=== PATIENT | female | born 1930 | race Caucasian/White ===

== ENCOUNTER 2017-10-23 17:32 | Inpatient (IN) | payer OTHER ==
[~2017-10-23] VITALS: Ht 160 cm; Wt 51.0 kg
--- NOTE | ~2017-10-23 | HC ---
[facility] [place] [address] CONSULTATION Name: BRISEIDA BOSS Room #: 360-P [facility] IN M.R.#: [id number] Admission: 10/23/17 Attend Phys: Janes Luther MD Discharge: 10/29/17 Date of : 30 Report #: [id number] THIS REPORT FOR: //name// CC: Janes Verdugo DATE OF SERVICE: 10/24/2017 REFERRING PROVIDER: Morgan Rivas MD REASON FOR CONSULTATION: Pneumonia. CHIEF COMPLAINT: Cough, shortness of breath. HISTORY OF PRESENT ILLNESS: Our group was asked to evaluate the patient in consultation while hospitalized at [facility], a pleasant 87-year-old woman, very hard of hearing. History taken from discussion with daughter at bedside. The patient has been having 5 days of increasing shortness of breath and generalized weakness, noted to have pneumonia and influenza in August, treated with Levaquin, started having increasing symptoms again of cough and weakness as described as well as Levaquin and presented to the Emergency Department due to increasing shortness of breath prompting admission. CT scan of the chest revealed some patchy ground glass infiltrates as well as a diffuse infiltrative changes of the lungs, suggestion of bronchiectasis and some basilar fibrosis. The patient denies any dysphagia or odynophagia. ALLERGIES: None known. PAST MEDICAL HISTORY: 1. Prior pneumonia. 2. Gastroesophageal reflux disease. 3. General debilitation with inability to ambulate. Currently, uses a wheelchair. 4. Incontinence. 5. Prior GI bleed. FAMILY HISTORY: Noncontributory due to advanced age. SOCIAL HISTORY: The patient is an ex-smoker, quitting about 60 years ago. No alcohol consumption. Currently lives in [facility]. REVIEW OF SYSTEMS: CONSTITUTIONAL: No fevers, chills, sweats. ENT: No upper respiratory congestion or rhinorrhea. CARDIOVASCULAR: No chest pains or palpitations. [facility] [address] [place] [address] CONSULTATION Name: BRISEIDA BOSS Room #: 360-[facility]#: [id number] Admission: 10/23/17 Attend Phys: Janes Luther MD Discharge: 10/29/17 Date of : 30 Report #: [id number] GASTROINTESTINAL: No abdominal pain, nausea, vomiting or dysphagia. GENITOURINARY: No dysuria, no frequency but does have incontinence. INTEGUMENT: Denies any rash. MUSCULOSKELETAL: No new joint pains or swellings. NEUROLOGIC: Chronic lower extremity weakness. PHYSICAL EXAMINATION: VITAL SIGNS: Afebrile, pulse 80s, respiratory 18, blood pressure 120/64, oxygen saturation 93%. GENERAL: This is a pleasant elderly woman in no distress, hard of hearing. ENT: Clear oropharynx, some dental caries noted. NECK: Supple, no lymphadenopathy. LUNGS: Coarse breath sounds throughout with inspiratory crackles and expiratory rhonchi. CARDIOVASCULAR: Heart was regular. No murmurs. ABDOMEN: Soft, nontender, no masses. EXTREMITIES: Without edema. LABORATORY DATA: White blood cell count is 23,000, hemoglobin 6, hematocrit 20, platelet count 270. Sodium 145, potassium 3.8, chloride 115, bicarbonate 16, BUN 34, creatinine 1.4, glucose of 80, albumin 1.8. Arterial blood gas last night revealed pH 7.43, pCO2 of 23, pO2 of 73, bicarbonate of 16 on room air. IMPRESSION: 1. Recurrent pneumonia, possible aspiration with immunocompromised patient would be contributing etiology. Aspiration could be related to dysphagia or ongoing reflux with her findings on CT of esophageal with fluid and hiatal hernia, suggesting significant reflux. 2. Anemia with some concern for gastrointestinal blood loss given prior history. 3. Acute hypoxemic respiratory failure. 4. Possible chronic pulmonary fibrosis likely related to chronic reflux with aspiration. 5. Leukocytosis. SUGGESTION: 1. Antibiotics per Infectious Disease Service. 2. Steroids with taper. 3. Bronchodilators. 4. GI evaluation. 5. Follow up chest x-ray. 6. Given metabolic acidosis, follow up arterial blood gas. <ELECTRONICALLY SIGNED> By: George Richardson MD 11/03/17 1233 1434 17 George Richardson MD /nt
--- NOTE | ~2017-10-23 | H ---
[facility] [place] [address] HISTORY AND PHYSICAL Name: BRISEIDA BOSS Room #: 360-P ADM IN M.R.#: [id number] Admission: 10/23/17 Attend Phys: Janes Luther MD Discharge: Date of : 30 Report #: [id number] THIS REPORT FOR: //name// CC: Janes Rivas Shay Kartik DATE OF SERVICE: 10/23/2017 CHIEF COMPLAINT: Acute pneumonia, not responding to outpatient therapy, has had 2 episodes of pneumonia so far this year. HISTORY OF PRESENT ILLNESS: Information is obtained from the patient's record, the patient, and her daughter. She was found to have leukocytosis and pneumonia on a chest x-ray earlier this week in her [facility], and she was started on Levaquin. She did not feel any better, was weak and confused and her laboratory was repeated on the morning of admission showing a markedly elevated white blood cell count. For this reason she was sent to the Emergency Room where a chest x-ray showed chronic lung changes with possible right lung base acute infiltrate. Her white blood cell count was markedly elevated at 24,500 with a left shift, and admission for further evaluation and therapy was indicated. Her daughter indicates that the patient developed cough for about little more than a year ago, but does not have diagnosis of significant lung disease. The accompanying records indicate that she has had some wheezing at times. She had influenza 09-07-2017. She did have an acute pneumonia by chest x-ray in [place] of this year, and was treated with doxycycline and then switched to levofloxacin. When she had pneumonia show up on her chest x-ray 3 days ago, she was started on levofloxacin 500 mg daily. She stopped smoking cigarettes when she started having children, perhaps 1954. However, her remained a heavy smoker, so she experienced a secondhand smoke exposure. Apparently, she has had no pulmonary problems until her cough in this last year, Other past medical history is significant for anemia with possible GI bleeding. Her daughter reports that routine colonoscopy (not known if an EGD accompanied it) 3-4 years ago that "did not show anything." However, over the last year, her hemoglobin has been low about 9 and it was felt that she was sufficiently frail that it was decided not to pursue endoscopic procedures. She has been transfused. She was diagnosed with nonspecific GI hemorrhage. She became incontinent of stool a while ago, and the daughter is not aware of the presence of blood in the stools. Other past medical history is significant for having a permanent pacemaker. She has esophageal reflux, constipation, heart failure with edema, [address] [address] HISTORY AND PHYSICAL Name: BOSSBRISEIDA M Room #: 360-P [facility] IN ..#: [id number] Admission: 10/23/17 Attend Phys: Janes Luther MD Discharge: Date of : 30 Report #: [id number] osteoporosis, diffuse osteoarthritis, hypertension, hyperlipidemia, glaucoma, hypothyroidism, vitamin D deficiency. CURRENT MEDICATIONS: Levofloxacin 500 mg 1 daily was started 3 days ago, acetaminophen, alendronate 70 mg daily, ipratropium/albuterol 4 times daily, iron 325 mg twice daily, potassium 40 mEq 3 times daily, lactobacillus, furosemide 20 mg in the morning, latanoprost in both eyes at bedtime, levothyroxine 100 mcg daily, lisinopril 10 mg daily, milk of magnesia as needed, supplement drinks, PreserVision ARED eye capsules twice daily, ranitidine 150 mg at bedtime, simvastatin 20 mg at bedtime and vitamin D3 1000 units daily. ALLERGIES: None known. SOCIAL HISTORY: She is a [facility] of a [facility]. Daughter indicates approximately a year ago she became weak enough that she was no longer ambulatory. She does not drink nor smoke. Her code status is DNR. REVIEW OF SYSTEMS: Her daughter reports she saw her several days ago. She was confused, weak and lethargic. This morning after admission, she appears more alert, stronger and less confused. She is incontinent of bowel and urine. She is complaining of diffuse pain of the neck, thorax and lumbar spine area. She has no other complaints. OBJECTIVE: GENERAL: Examination shows an 87-year-old woman who appears alert and oriented. HEENT: Unremarkable, except the oropharynx is quite dry. NECK: Jugular venous pulsations are minimally elevated. CARDIOVASCULAR: S1 and S2 are normal and regular. CHEST: A implanted pacemaker is seen in the left upper anterior chest. Rales are easily heard through the middle and lower lung zavala. They improve, but do not disappear with a deep breath. ABDOMEN: Soft and nontender without hepatosplenomegaly or masses. GENITOURINARY: Deferred. RECTAL: Deferred. EXTREMITIES: There is no edema in the extremities at this time, and her daughter reports that ordinarily she does have some swelling in her legs. LABORATORY DATA: Her white blood cell count on admission was 24,500, and repeated this morning is essentially the same at 23,400. There is left shift with 85% segs. Her hemoglobin last night was 8.8, with IV fluids has dropped to 6.2 this morning. Her MCV is 85. Platelets are 320,000. Arterial blood gas on room air in the Emergency Room showed a pH 7.431, pCO2 was low at 23 with a pO2 of 72.8 on room air. Base excess is -7.9. Lactate is [facility] [address] [place] [address] HISTORY AND PHYSICAL Name: BRISEIDA BOSS Room #: 360-P ADM IN M.R.#: [id number] Admission: 10/23/17 Attend Phys: Janes Luther MD Discharge: Date of : 30 Report #: [id number] normal at 1.51. These were on room air. Chest x-ray showed extensive diffuse interstitial infiltrates, mostly peripheral in the right lung base with some right upper lung infiltrate and bilateral apical pleural thickening. Chronicity was uncertain. In the Emergency Room, her blood pressure was 86/56 with a pulse of 94 and she was tachypneic at 26. Her hypotension persisted at least for an hour and a half, qualifying for septic shock. ASSESSMENT: 1. Septic shock, resolved this morning. 2. Toxic encephalopathy with confusion on admission and improving with treatment overnight. 3. Marked leukocytosis that persists. 4. Chest x-ray is inconclusive -- suggests either chronic interstitial changes and/or some acute basilar and right upper lobe infiltrates. 5. Metabolic acidosis. 6. Marked anemia -- by history suspected to be from gastrointestinal blood loss source. With rehydration overnight, her hemoglobin dropped from 8.8-6.2 without blood loss in the stools being noted by the nurses. 7. History of several episodes of pneumonia and influenza over the last several months in the [facility] setting. 9. History of "congestive heart failure" with edema in the legs and stable on furosemide. 10. Hyperlipidemia. 11. Gastroesophageal reflux disease. 12. Atrioventricular block treated with pacemaker. 13. Other medical problems as listed above. PLAN: The patient has been admitted and placed on levofloxacin and piperacillin for healthcare-associated pneumonia. Infectious Disease consultation with Dr. Grajeda has been requested for assistance in choosing the appropriate antibiotic, in as much as levofloxacin has been used several times in the last month. The interstitial changes on chest x-ray along with apical pleural thickening suggests some chronic pulmonary disease. Pulmonary medicine consultation with Dr. Richardson has been requested, and nebulized bronchodilators will be continued. A CT of the chest is planned. With her hemoglobin dropping to 6.2, one unit of blood will be transfused. Laboratory to look for B12 deficiencies, as well as iron deficiency is being drawn [place] [address] HISTORY AND PHYSICAL Name: KARYNBRISEIDA M Room #: 360-P [facility] IN [facility]#: [id number] Admission: 10/23/17 Attend Phys: Janes Luther MD Discharge: Date of : 30 Report #: [id number] Tylenol is being given for her back pain. <ELECTRONICALLY SIGNED> By: Morgan Rivas MD 10/26/17 1702 1124 1307 Morgan Rivas MD /nt
--- NOTE | ~2017-10-23 | EKG ---
[place] [address] [facility] [place] [address] ELECTROCARDIOGRAM REPORT Name: BOSSBRISEIDA M Room #: 360-P ADM IN M.R.#: [id number] Admission: 10/23/17 Attend Phys: Morgan Rivas MD Discharge: Date of : 30 Report #: [id number] THIS REPORT FOR: //name// [facility] ED Test Date: 2017-10-23 Test Time: 17:39:23 Pat Name: BRISEIDA BOSS Department: Room: 360 Gender: F Hook Loader: Cassy CHILD : 1930 Requested By: Nyasia Cervantes Order Number: [id number] MD: Cheng Edgar Measurements Intervals [place] Rate: 94 P: -40 UT: 187 QRS: -71 QRSD: 126 T: 104 QT: 390 QTc: 488 Interpretive Statements Atrial-sensed ventricular-paced rhythm No further analysis attempted due to paced rhythm No previous ECG available for comparison Electronically Signed On 10-24-2017 10:23:13 SENIOR C WEB DEVELOPER by Cheng Edgar [email or web address] <ELECTRONICALLY SIGNED> By: Cheng Edgar MD 10/24/17 1023 1739 1739 Cheng Edgar MD /DAKOTA
[2017-10-23 17:38] VITALS: BP 86/56
[2017-10-23] MEDS ORDERED: APAP650 PO (17:43)
[2017-10-23] MEDS ORDERED: DUONEB 2.5-0.5 M3 ML INH (17:44)
[2017-10-23] MEDS ORDERED: FOSAMAX 70 MG T70 MG PO (17:44)
[2017-10-23] MEDS ORDERED: PROBIOTIC1 EAC1 PO (17:45)
[2017-10-23] MEDS ORDERED: IRON325 PO (17:45)
[2017-10-23] MEDS ORDERED: KLOR-CON 1010 MEQ PO (17:45)
[2017-10-23] MEDS ORDERED: LEVAQUIN 500 M500 M2 PO (17:46)
[2017-10-23] MEDS ORDERED: XALATAN2.5 ML OPHTHALMIC (17:46)
[2017-10-23] MEDS ORDERED: LASIX 20 MG TAB20 MG PO (17:46)
[2017-10-23] MEDS ORDERED: LISINOPRIL10 MG PO (17:47)
[2017-10-23] MEDS ORDERED: MILK OF MA2400 MG/10 PO (17:47)
[2017-10-23] MEDS ORDERED: SYNTHROID100 MCG PO (17:47)
[2017-10-23 17:54] LABS: BE(vivo) -7.9 mmol/L (-2 to +3); PCO2 23.1 mmHg (35.0-45.0); PO2 72.8 mmHg (80.0-100.0); pH 7.431 (7.360-7.450); sO2 95.4 % (92.0-98.0)
[2017-10-23] MEDS ORDERED: IBUPROFEN 800800 MG PO ×3 (18:37→18:42)
[2017-10-23 19:21] LABS: HEMATOCRIT 28.3 % (37.0-47.0); HEMOGLOBIN 8.8 gm/dL (12.0-15.0); MCH 26.7 pg (26.0-34.0); MCHC 31.1 g/dL (28.0-37.0); MCV 85.7 fL (80.0-100.0); PLATELET COUNT 328 thou/uL (150-400); WBC 24.5 thou/uL (4.0-11.0)
[2017-10-23 19:29] LABS: CALCIUM 8.3 mg/dL (8.5-10.1); CREATININE 1.6 mg/dL (0.6-1.0)
[2017-10-23 19:40] LABS: ABSOLUTE NEUTROPHILS 21.8 thou/uL (1.4-8.2); ANISOCYTOSIS 1+
[2017-10-23 20:12] VITALS: BP 85/34
[2017-10-23 20:31] VITALS: BP 104/55
[2017-10-23 21:03] VITALS: BP 113/54
[2017-10-23 23:20] VITALS: BP 110/61
[2017-10-24 04:00] VITALS: BP 122/64
[2017-10-24 08:00] VITALS: BP 118/68
[2017-10-24 10:19] LABS: MCH 26.6 pg (26.0-34.0); MCHC 31.6 g/dL (28.0-37.0); RBC 2.33 mil/uL (4.20-5.00); RDW 18.4 % (10.5-14.5); WBC 23.4 thou/uL (4.0-11.0)
[2017-10-24 10:21] LABS: HEMATOCRIT 19.6 % (37.0-47.0); HEMOGLOBIN 6.2 gm/dL (12.0-15.0)
[2017-10-24 10:30] LABS: ALBUMIN 1.8 g/dL (3.4-5.0); CREATININE 1.4 mg/dL (0.6-1.0); POTASSIUM 3.8 mmol/L (3.5-5.1); TOTAL BILIRUBIN 0.2 mg/dL (<0.1-1.0); TOTAL PROTEIN 5.3 g/dL (6.4-8.2)
[2017-10-24 12:00] VITALS: BP 126/70
[2017-10-24 15:08] VITALS: BP 79/39; BP 99/50
[2017-10-24 16:01] LABS: BE(vivo) -9.2 mmol/L (-2 to +3); HCO3 14.6 mmol/L (22.0-26.0); PCO2 24.3 mmHg (35.0-45.0); PO2 72.2 mmHg (80.0-100.0); pH 7.397 (7.360-7.450); sO2 94.9 % (92.0-98.0)
[2017-10-24 19:13] LABS: URINE BILIRUBIN NEGATIVE (Negative); URINE BLOOD NEGATIVE (Negative); URINE CLARITY CLEAR; URINE COLOR YELLOW; URINE GLUCOSE-RANDOM* NEGATIVE (Negative); URINE KETONES NEGATIVE (Negative); URINE LEUKOCYTES-REFLEX NEGATIVE (Negative); URINE NITRITE-REFLEX NEGATIVE (Negative); URINE PROTEIN (DIPSTICK) NEGATIVE (Negative); URINE SPECIFIC GRAVITY <= 1.005 (1.005-1.035); URINE UROBILINOGEN 0.2 E.U./dl (0.2-1.0)
[2017-10-24 19:35] VITALS: BP 110/64
[2017-10-24 20:06] LABS: OBSERVED RETIC COUNT 1.78 % (0.6-2.6)
[2017-10-24 20:14] LABS: % SATURATION 15 % (20-39); IRON 18 ug/dL (50-170); TIBC 122 ug/dL (250-450)
[2017-10-24 20:41] LABS: FOLIC ACID 19.4 ng/mL (8.6-58.9)
[2017-10-25] VITALS (7 sets, daily range): BP systolic 78–1224; BP diastolic 38–62
[2017-10-25 01:09] LABS: ABSOLUTE NEUTROPHILS 12.9 thou/uL (1.4-8.2); BASOPHILS 0.3 % (0.0-2.0); EOSINOPHILS 3.3 % (0.0-3.0); HEMATOCRIT 20.8 % (37.0-47.0); HEMOGLOBIN 6.6 gm/dL (12.0-15.0); LYMPHOCYTES 5.9 % (24.0-44.0); MCH 26.4 pg (26.0-34.0); MCHC 31.9 g/dL (28.0-37.0); MCV 82.8 fL (80.0-100.0); MONOCYTES 5.9 % (1.0-8.0); PLATELET COUNT 244 thou/uL (150-400); POLYS 84.6 % (36.0-66.0); RBC 2.51 mil/uL (4.20-5.00); RDW 19.1 % (10.5-14.5); WBC 15.2 thou/uL (4.0-11.0)
[2017-10-25 01:21] LABS: CALCIUM 7.1 mg/dL (8.5-10.1); CREATININE 1.4 mg/dL (0.6-1.0)
[2017-10-25 18:26] LABS: HEMATOCRIT 28.7 % (37.0-47.0)
[2017-10-25 18:28] LABS: HEMOGLOBIN 9.5 gm/dL (12.0-15.0)
[2017-10-26 04:25] VITALS: BP 119/64
[2017-10-26 06:41] LABS: HEMOGLOBIN 8.5 gm/dL (12.0-15.0); MCH 27.9 pg (26.0-34.0); MCHC 33.8 g/dL (28.0-37.0); MCV 82.6 fL (80.0-100.0); RBC 3.03 mil/uL (4.20-5.00); RDW 18.1 % (10.5-14.5); WBC 10.5 thou/uL (4.0-11.0)
[2017-10-26 06:46] LABS: CALCIUM 6.8 mg/dL (8.5-10.1); CREATININE 1.1 mg/dL (0.6-1.0); POTASSIUM 3.3 mmol/L (3.5-5.1)
[2017-10-26 07:51] VITALS: BP 115/67
[2017-10-26 20:15] VITALS: BP 107/57
[2017-10-27 03:50] VITALS: BP 110/61
[2017-10-27 08:01] VITALS: BP 102/60
[2017-10-27 10:50] LABS: HEMATOCRIT 29.5 % (37.0-47.0); HEMOGLOBIN 9.7 gm/dL (12.0-15.0)
[2017-10-27 11:38] VITALS: BP 117/63
[2017-10-27 13:11] LABS: ALBUMIN 1.9 g/dL (3.4-5.0); CALCIUM 6.7 mg/dL (8.5-10.1); CREATININE 1.1 mg/dL (0.6-1.0)
[2017-10-27 13:13] LABS: POTASSIUM 2.7 mmol/L (3.5-5.1)
[2017-10-27 13:48] LABS: HCO3 16.4 mmol/L (22.0-26.0); PO2 64.4 mmHg (80.0-100.0); sO2 93.7 % (92.0-98.0)
[2017-10-27 13:49] LABS: PCO2 24.7 mmHg (35.0-45.0)
[2017-10-27 15:40] VITALS: BP 124/64
[2017-10-27 20:00] VITALS: BP 99/53
[2017-10-27 22:11] LABS: ADENOVIRUS Negative (Negative); INFLUENZA A Negative (Negative); INFLUENZA B Negative (Negative); METAPNEUMOVIRUS Negative (Negative); PARAINFLUENZA 1 Negative (Negative); PARAINFLUENZA 2 Negative (Negative); PARAINFLUENZA 3 Negative (Negative); RHINOVIRUS Negative (Negative); RSV A Negative (Negative); RSV B Negative (Negative)
[2017-10-28 04:00] VITALS: BP 119/62
[2017-10-28 04:32] LABS: HEMATOCRIT 26.8 % (37.0-47.0); MCH 27.4 pg (26.0-34.0); MCHC 33.5 g/dL (28.0-37.0); RBC 3.27 mil/uL (4.20-5.00); RDW 17.8 % (10.5-14.5); WBC 9.2 thou/uL (4.0-11.0)
[2017-10-28 04:46] LABS: CREATININE 0.9 mg/dL (0.6-1.0); MAGNESIUM 1.2 mg/dL (1.8-2.4)
[2017-10-28 08:47] VITALS: BP 101/49
[2017-10-28] MEDS ORDERED: AUGMENTIN 500-1 EACH PO (13:29)
[2017-10-28] MEDS ORDERED: MAGNESIUM400 MG PO (13:29)
[2017-10-28] MEDS ORDERED: AZITHROMYCIN 2250 MG PO (13:29)
[2017-10-28 19:46] VITALS: BP 100/79
[2017-10-29 03:29] VITALS: BP 120/59
[2017-10-29 06:42] LABS: HEMATOCRIT 26.9 % (37.0-47.0); HEMOGLOBIN 8.9 gm/dL (12.0-15.0)
[2017-10-29 07:00] LABS: CALCIUM 7.4 mg/dL (8.5-10.1); CREATININE 0.9 mg/dL (0.6-1.0); POTASSIUM 3.7 mmol/L (3.5-5.1)
[2017-10-29 07:27] VITALS: BP 121/61
[2017-10-29] MEDS ORDERED: PRILOSEC 20 MG20 MG PO (09:29)
[2017-10-29] MEDS ORDERED: BACTROBAN NASAL1 GM NASAL (09:43)
[2017-10-29 11:31] VITALS: BP 117/77
[2017-10-29] MEDS ORDERED: CARAFATE 1 GM TA1 G1 PO (15:48)
[2017-10-29 16:12] VITALS: BP 110/63
== END 2017-10-29 17:51 | DRG 871 ==
LOC: ER 17:32 → EROBS 20:20 → 3W 20:20
PROVIDERS: Emergency Medicine; Internal Medicine; Internal Medicine Gastroenterology; Internal Medicine Pulmonary Disease; Nurse Practitioner; Specialist
PROC: 30233N1 Transfusion of Nonautologous Red Blood Cells into Peripheral Vein, Percutaneous Approach (ICD-10-PCS; principal; 2017-10-24)
DX: A41.9 Sepsis, unspecified organism (principal); J69.0 Pneumonitis due to inhalation of food and vomit; E43 Unspecified severe protein-calorie malnutrition; J96.01 Acute respiratory failure with hypoxia; R65.21 Severe sepsis with septic shock; D62 Acute posthemorrhagic anemia; F03.90 Unspecified dementia, unspecified severity, without behavioral disturbance, psychotic disturbance, mood disturbance, and anxiety; I95.9 Hypotension, unspecified; K21.9 Gastro-esophageal reflux disease without esophagitis; K59.00 Constipation, unspecified; M81.0 Age-related osteoporosis without current pathological fracture; E78.5 Hyperlipidemia, unspecified; H40.9 Unspecified glaucoma; E03.9 Hypothyroidism, unspecified; Z66 Do not resuscitate; I11.0 Hypertensive heart disease with heart failure; I50.9 Heart failure, unspecified; I44.30 Unspecified atrioventricular block; M19.90 Unspecified osteoarthritis, unspecified site; D50.9 Iron deficiency anemia, unspecified; F98.0 Enuresis not due to a substance or known physiological condition; E87.6 Hypokalemia; J11.1 Influenza due to unidentified influenza virus with other respiratory manifestations; J84.10 Pulmonary fibrosis, unspecified; E83.42 Hypomagnesemia; R13.13 Dysphagia, pharyngeal phase; Z79.899 Other long term (current) drug therapy; Z90.710 Acquired absence of both cervix and uterus; Z87.891 Personal history of nicotine dependence; Z95.0 Presence of cardiac pacemaker
CPT/HCPCS: 10879

== ENCOUNTER 2017-11-05 10:06 | Emergency (ER) | payer OTHER ==
[~2017-11-05] VITALS: Ht 152.4 cm; Wt 51.3 kg
--- NOTE | ~2017-11-05 | EKG ---
[place] [address] [place] [address] ELECTROCARDIOGRAM REPORT Name: BOSSBRISEIDA Kristofer [id number] Admission: 11/05/17 Attend Phys: Discharge: 11/05/17 Date of : 30 Report #: [id number] THIS REPORT FOR: //name// [facility] ED Test Date: 2017-11-05 Test Time: 10:16:14 Pat Name: BRISEIDA BOSS Department: Room: Gender: F Auto Design Checker: ANABELL : 1930 Requested By: Herb Allan Order Number: [id number] MD: Kade Davies Measurements Intervals [place] Rate: 72 P: -33 RI: 201 QRS: -71 QRSD: 154 T: 92 QT: 480 QTc: 526 Interpretive Statements Atrial-sensed ventricular-paced complexes No further analysis attempted due to paced rhythm Compared to ECG 10/23/2017 17:39:23 No significant changes Electronically Signed On 11-07-2017 13:36:22 CDT by Kade Davies [email or web address] <ELECTRONICALLY SIGNED> By: Kade Davies MD, [facility] 11/07/17 1336 1016 1016 Kade Davies MD, FAC /EPI
[~2017-11-05 10:06] MED LIST: APAP650 PO; AUGMENTIN 500-1 EACH PO; AZITHROMYCIN 2250 MG PO; BACTROBAN NASAL1 GM NASAL; CARAFATE 1 GM TA1 G1 PO; DUONEB 2.5-0.5 M3 ML INH; FOSAMAX 70 MG T70 MG PO; IBUPROFEN 800800 MG PO; IRON325 PO; KLOR-CON 1010 MEQ PO; LASIX 20 MG TAB20 MG PO; LEVAQUIN 500 M500 M2 PO; LISINOPRIL10 MG PO; MAGNESIUM400 MG PO; MILK OF MA2400 MG/10 PO; PRILOSEC 20 MG20 MG PO; PROBIOTIC1 EAC1 PO; SYNTHROID100 MCG PO; XALATAN2.5 ML OPHTHALMIC
[2017-11-05 10:32] LABS: ABSOLUTE NEUTROPHILS 6.2 thou/uL (1.4-8.2); BASOPHILS 0.6 % (0.0-2.0); EOSINOPHILS 5.1 % (0.0-3.0); HEMOGLOBIN 9.4 gm/dL (12.0-15.0); LYMPHOCYTES 12.6 % (24.0-44.0); MCH 28.6 pg (26.0-34.0); MCHC 33.8 g/dL (28.0-37.0); MCV 84.7 fL (80.0-100.0); MONOCYTES 9.1 % (1.0-8.0); PLATELET COUNT 277 thou/uL (150-400); POLYS 72.6 % (36.0-66.0); WBC 8.6 thou/uL (4.0-11.0)
[2017-11-05 10:41] LABS: ANION GAP 8 mmol/L (7-16); BUN 22 mg/dL (7-18); CHLORIDE 106 mmol/L (98-107); CO2 26 mmol/L (21-32); CREATININE 1.2 mg/dL (0.6-1.0); GLUCOSE 76 mg/dL (74-106); POTASSIUM 3.4 mmol/L (3.5-5.1); SODIUM 140 mmol/L (136-145)
[2017-11-05] MEDS ORDERED: REMERON15 MG PO (10:43)
[2017-11-05] MEDS ORDERED: VANCO 1 GR1 GM/150 M IV (10:45)
[2017-11-05 10:50] LABS: ALBUMIN 1.8 g/dL (3.4-5.0); DIRECT BILIRUBIN < 0.1 mg/dL (<0.1-0.3); LIPASE 95 U/L (73-393); SGOT 14 U/L (15-37); SGPT 12 U/L (30-65); TOTAL BILIRUBIN 0.3 mg/dL (<0.1-1.0); TOTAL PROTEIN 5.3 g/dL (6.4-8.2); TROPONIN-I < 0.04 ng/mL (<0.06)
[2017-11-05 10:57] LABS: URINE BILIRUBIN NEGATIVE (Negative); URINE BLOOD NEGATIVE (Negative); URINE CLARITY CLEAR; URINE COLOR YELLOW; URINE GLUCOSE-RANDOM* NEGATIVE (Negative); URINE KETONES NEGATIVE (Negative); URINE LEUKOCYTES TRACE (Negative); URINE NITRITE NEGATIVE (Negative); URINE PROTEIN (DIPSTICK) NEGATIVE (Negative); URINE UROBILINOGEN 0.2 E.U./dl (0.2-1.0)
[2017-11-05 13:50] VITALS: BP 91/44
== END 2017-11-05 13:53 ==
LOC: ER 10:06
PROVIDERS: Nurse Practitioner
DX: J18.9 Pneumonia, unspecified organism (principal); I10 Essential (primary) hypertension; E07.9 Disorder of thyroid, unspecified; E78.5 Hyperlipidemia, unspecified; M19.90 Unspecified osteoarthritis, unspecified site